=== PATIENT | female | born 1935 | race Caucasian/White ===

== ENCOUNTER → 2016-11-11 08:15 | Outpatient (CLI) | payer MEDICARE, BC ==
[2010-05-01 12:49] VITALS: BMI 28.7
== END | disposition home or self-care (01) ==
LOC: D.NM 08:15
DX: E04.1 Nontoxic single thyroid nodule (principal)

== ENCOUNTER → 2017-04-15 10:03 | Outpatient (CLI) | payer MEDICARE, BC ==
[2010-05-01 12:49] VITALS: BMI 28.7
[2017-04-15 12:43] LABS: BASOPHILS 0.1 % (0-2); EOSINOPHILS 0.4 % (0-7); HEMATOCRIT 26.8 % (36.0-48.0); HEMOGLOBIN 8.1 g/dL (12-16); IMMATURE GRANULOCYTES 0.4 % (0-5); LYMPHOCYTES 3.1 % (15-50); MCH 27.4 pg (26.0-34.0); MCHC 30.2 g/dL (31.0-37.0); MCV 90.5 fL (80.0-100.0); MEAN PLATELET VOLUME 8.6 fL (7.4-10.4); MONOCYTES 4.3 % (2-11); NEUTROPHILS 91.7 % (40-80); PLATELET COUNT 260 10x3/uL (130-400); RBC 2.96 10x6/uL (4.00-5.40); RDW 16.3 % (11.5-14.5); WBC 16.6 10x3/uL (4.8-10.8)
[2017-04-16 07:21] LABS: IMMUNOGLOBULIN E 81 IU/mL (0-100)
== END | disposition home or self-care (01) ==
LOC: D.RT 10:00
PROVIDERS: Internal Medicine Pulmonary Disease
DX: J44.9 Chronic obstructive pulmonary disease, unspecified (principal)

== ENCOUNTER → 2017-10-04 16:18 | Outpatient (CLI) | payer MEDICARE, BC ==
[2010-05-01 12:49] VITALS: BMI 28.7
[2017-10-04 16:53] LABS: BASOPHILS 0.4 % (0-2); EOSINOPHILS 5.1 % (0-7); HEMATOCRIT 23.5 % (36.0-48.0); HEMOGLOBIN 7.2 g/dL (12-16); IMMATURE GRANULOCYTES 0.2 % (0-5); LYMPHOCYTES 13.1 % (15-50); MCHC 30.6 g/dL (31.0-37.0); MCV 94.8 fL (80.0-100.0); MEAN PLATELET VOLUME 9.6 fL (7.4-10.4); MONOCYTES 11.6 % (2-11); NEUTROPHILS 69.6 % (40-80); PLATELET COUNT 287 10x3/uL (130-400); RBC 2.48 10x6/uL (4.00-5.40); RDW 15.5 % (11.5-14.5); WBC 5.3 10x3/uL (4.8-10.8)
[2017-10-04 17:06] LABS: INR 2.22 (0.85-1.17)
[2017-11-07 13:09] VITALS: BMI 25.7
== END | disposition home or self-care (01) ==
LOC: D.LABREF 16:18
PROVIDERS: Obstetrics & Gynecology
DX: D64.9 Anemia, unspecified (principal)

== ENCOUNTER 2017-10-06 11:12 | Outpatient (CLI) | payer MEDICARE, BC ==
[2010-05-01 12:49] VITALS: BMI 28.7
[2017-10-06 12:07] LABS: RBC 2.45 10x6/uL (4.00-5.40); WBC 6.6 10x3/uL (4.8-10.8)
[2017-10-06 12:08] LABS: BASOPHILS 0.3 % (0-2); EOSINOPHILS 3.5 % (0-7); HEMATOCRIT 23.4 % (36.0-48.0); LYMPHOCYTES 7.7 % (15-50); MCH 29.8 pg (26.0-34.0); MCHC 31.2 g/dL (31.0-37.0); MCV 95.5 fL (80.0-100.0); MEAN PLATELET VOLUME 9.2 fL (7.4-10.4); MONOCYTES 6.8 % (2-11); NEUTROPHILS 81.7 % (40-80); PLATELET COUNT 297 10x3/uL (130-400); RDW 15.2 % (11.5-14.5)
[2017-10-06 12:47] LABS: ALBUMIN 3.3 g/dL (3.4-5.0); ANION GAP 8.2 mmol/L (8-16); BILIRUBIN - TOTAL 0.1 mg/dL (0.2-1.3); CALCIUM 9.5 mg/dL (8.5-10.1); CARBON DIOXIDE 33.3 mmol/L (21.0-32.0); CREATININE - SERUM 1.4 mg/dL (0.6-1.3); POTASSIUM - SERUM 4.5 mmol/L (3.5-5.1); PROTEIN - SERUM 6.2 g/dL (6.4-8.2)
[2017-10-06 12:58] LABS: HEMOGLOBIN 7.3 g/dL (12-16)
== END 2017-10-06 19:00 | disposition home or self-care (01) ==
LOC: D.OPS 11:12
PROVIDERS: Family Medicine
DX: D64.9 Anemia, unspecified (principal)

== ENCOUNTER 2017-11-07 10:30 | Outpatient (CLI) | payer MEDICARE, BC ==
[~2017-11-07] VITALS: Ht 160 cm; Wt 65.9 kg
[2017-11-07 13:09] VITALS: BP 123/64; Ht 160 cm; Wt 65.9 kg
== END 2017-11-07 17:56 | disposition home or self-care (01) ==
LOC: D.OPS 10:30
DX: D64.9 Anemia, unspecified (principal); Z01.812 Encounter for preprocedural laboratory examination

== ENCOUNTER → 2018-07-20 14:57 | Outpatient (CLI) | payer MEDICARE, BC ==
[2017-11-07 13:09] VITALS: BMI 25.7
[~2018-07-20 14:57] MED LIST: BAYER CHEWABLE81 MG; BROVANA15 MCG/2 M INH; CALCIUM 600 +1 EAC3; FERROUS SULFAT325 MG PO; METFORMIN HCL500 M1 PO; METOPROLOL TART25 MG; STERAPRED 5MG 125 MG PO; TRAZODONE HCL150 MG PO; ZOCOR20 MG; [UNRECOGNIZED DRUG - OTHER]
== END | disposition home or self-care (01) ==
LOC: D.RT 14:00
PROVIDERS: ATTEND Internal Medicine Pulmonary Disease
DX: J44.9 Chronic obstructive pulmonary disease, unspecified (principal)

== ENCOUNTER 2018-07-27 15:31 | Emergency (ER) | payer MEDICARE ==
[~2018-07-27] VITALS: Ht 160 cm; Wt 62.3 kg
[2018-07-27 15:38] VITALS: BP 107/58; Ht 160 cm; Wt 62.3 kg
[2018-07-27] MEDS ORDERED: BROVANA15 MCG/2 M INH (15:42)
[2018-07-27] MEDS ORDERED: METFORMIN HCL500 M1 PO (15:44)
[2018-07-27] MEDS ORDERED: ZOCOR20 MG (15:44)
[2018-07-27] MEDS ORDERED: FERROUS SULFAT325 MG PO (15:44)
[2018-07-27] MEDS ORDERED: METOPROLOL TART25 MG (15:45)
[2018-07-27] MEDS ORDERED: BAYER CHEWABLE81 MG (15:45)
[2018-07-27] MEDS ORDERED: CALCIUM 600 +1 EAC3 (15:45)
[2018-07-27] MEDS ORDERED: [UNRECOGNIZED DRUG - OTHER] (15:46)
[2018-07-27] MEDS ORDERED: TRAZODONE HCL150 MG PO (15:46)
[2018-07-27] MEDS ORDERED: STERAPRED 5MG 125 MG PO (15:47)
[2018-07-27 16:36] LABS: BASOPHILS 0.3 % (0-2); EOSINOPHILS 4.6 % (0-7); HEMATOCRIT 24.7 % (36.0-48.0); HEMOGLOBIN 7.6 g/dL (12-16); IMMATURE GRANULOCYTES 0.1 % (0-5); LYMPHOCYTES 9.6 % (15-50); MCH 28.3 pg (26.0-34.0); MCHC 30.8 g/dL (31.0-37.0); MCV 91.8 fL (80.0-100.0); MEAN PLATELET VOLUME 8.5 fL (7.4-10.4); MONOCYTES 8.4 % (2-11); PLATELET COUNT 261 10x3/uL (130-400); RBC 2.69 10x6/uL (4.00-5.40); RDW 14.2 % (11.5-14.5); WBC 6.8 10x3/uL (4.8-10.8)
[2018-07-27 16:48] LABS: APTT 32.6 SECONDS (22.8-39.4); INR 1.07 (0.85-1.17); PROTIME 13.4 SECONDS (11.6-15.0)
[2018-07-27 16:59] LABS: ALBUMIN 3.1 g/dL (3.4-5.0); ALKALINE PHOSPHATASE 34 U/L (46-116); ALT (SGPT) 14 U/L (10-68); CALC OSMOLALITY 288 mosm/kg (275-300); CALCIUM 9.9 mg/dL (8.5-10.1); CARBON DIOXIDE 37.4 mmol/L (21.0-32.0); CHLORIDE - SERUM 101 mmol/L (98-107); CREATININE - SERUM 1.1 mg/dL (0.6-1.3); POTASSIUM - SERUM 4.2 mmol/L (3.5-5.1); PROTEIN - SERUM 6.4 g/dL (6.4-8.2); SODIUM 141 mmol/L (136-145); UREA NITROGEN 34 mg/dL (7-18); eGFR NON AFRICAN AMERICAN 50 mL/min (90-120)
[2018-07-27 17:06] LABS: GLUCOSE 96 mg/dL (74-106)
[2018-07-27 17:09] LABS: CKMB 1.3 U/L (0.0-3.6); CREATINE KINASE 57 UL (21-215); PRO BNP 5502 pg/mL (0-450)
[2018-07-27 17:12] LABS: TROPONIN-I < 0.017 ng/mL (0.000-0.060)
== END 2018-07-27 19:30 | disposition left against medical advice (07) ==
LOC: D.ER 15:31
PROVIDERS: Family Medicine
DX: R06.02 Shortness of breath (principal)

== ENCOUNTER 2019-04-27 20:31 | Inpatient (IN) | payer MEDICARE, BC ==
[~2019-04-27] VITALS: Ht 160 cm; Wt 60.5 kg
[2019-04-27] VITALS (9 sets, daily range): BP systolic 115–156; BP diastolic 52–112
[2019-04-27 21:57] LABS: APTT 35.8 SECONDS (22.8-39.4); INR 1.11 (0.85-1.17); PROTIME 14.3 SECONDS (11.6-15.0)
[2019-04-27 21:59] LABS: D-DIMER-QUANTITATIVE 1.82 ug/mLFEU (0.20-0.54)
[2019-04-27 22:02] LABS: CALC OSMOLALITY 310 mosm/kg (275-300); CALCIUM 9.1 mg/dL (8.5-10.1); CARBON DIOXIDE 34.5 mmol/L (21.0-32.0); CHLORIDE - SERUM 105 mmol/L (98-107); CREATININE - SERUM 1.2 mg/dL (0.6-1.3); HEMATOCRIT 30.4 % (36.0-48.0); HEMOGLOBIN 8.8 g/dL (12-16); MCH 26.8 pg (26.0-34.0); MCHC 28.9 g/dL (31.0-37.0); MCV 92.7 fL (80.0-100.0); MEAN PLATELET VOLUME 9.2 fL (7.4-10.4); POTASSIUM - SERUM 4.3 mmol/L (3.5-5.1); RBC 3.28 10x6/uL (4.00-5.40); RDW 14.6 % (11.5-14.5); SODIUM 145 mmol/L (136-145); UREA NITROGEN 54 mg/dL (7-18); WBC 10.8 10x3/uL (4.8-10.8); eGFR NON AFRICAN AMERICAN 45 mL/min (90-120)
[2019-04-27 22:05] LABS: GLUCOSE 217 mg/dL (74-106)
[2019-04-27 22:12] LABS: PLATELET COUNT 420 10x3/uL (130-400)
[2019-04-27 22:27] LABS: ALBUMIN 2.3 g/dL (3.4-5.0); ALKALINE PHOSPHATASE 61 U/L (46-116); ALT (SGPT) 23 U/L (10-68); BILIRUBIN - TOTAL 0.32 mg/dL (0.2-1.3); CKMB 2.6 U/L (0.0-3.6); CREATINE KINASE 54 UL (21-215); PROTEIN - SERUM 6.7 g/dL (6.4-8.2)
[2019-04-27 22:30] LABS: PRO BNP 33713 pg/mL (0-450)
[2019-04-27 22:37] LABS: LYMPHOCYTES 13 % (15-50); NEUTROPHILS 62 % (40-80); PLATELET ESTIMATE NORMAL
[2019-04-28] VITALS (25 sets, daily range): BP systolic 98–139; BP diastolic 46–78; Ht 160 cm; Wt 60.5 kg
--- NOTE | 2019-04-28 | NUR ---
PT ADMITTED TO ICU. PT WAS ON O2 FOR TRANSFER THEN PUT ON BIPAP ONCE IN ICU BED. LEFT AC AND RIGHT AC PATENT. DENIES ANY NEEDS AT THIS TIME
--- NOTE | 2019-04-28 01:00 | NUR ---
REFUSED LOVENOX. STATED THAT SHE HAS NEVER HAD ONE AND SHE NEVER WILL. ATTEMPTED TO EDUCATE PT ON THE IMPORTANCE OF PREVENTING DVT WHILE IN THE HOSPITAL BUT PATIENT STILL REFUSED. ALSO, WHEN TALKING TO PATIENT ABOUT PERSONAL BELONGINGS, PATIENT STATED SHE HAD A WALLET AND MONEY IN A BANK [place]ELOPE THAT SHE DOES WANT LOCKED UP. CALLED ADMISSIONS AND THEY STATED THAT THEY WILL TRY TO COME DOWN TO GET IT.
--- NOTE | 2019-04-28 03:00 | NUR ---
EYES CLOSED, EASILY WAKES. DENIES ANY NEEDS.
[2019-04-28 03:48] LABS: APPEARANCE CLEAR (CLEAR); BILIRUBIN NEGATIVE (NEGATIVE); COLOR YELLOW (YELLOW); GLUCOSE NEGATIVE (NEGATIVE); KETONE NEGATIVE (NEGATIVE); NITRITE NEGATIVE (NEGATIVE); PROTEIN TRACE mg/dL (NEGATIVE); SPECIFIC GRAVITY 1.015 (1.005-1.020); UROBILINOGEN NORMAL (NORMAL)
[2019-04-28 04:32] LABS: BASOPHILS 0.1 % (0-2); EOSINOPHILS 0 % (0-7); HEMATOCRIT 29.1 % (36.0-48.0); HEMOGLOBIN 8.4 g/dL (12-16); IMMATURE GRANULOCYTES 0.4 % (0-5); LYMPHOCYTES 3.6 % (15-50); MCH 26.9 pg (26.0-34.0); MCHC 28.9 g/dL (31.0-37.0); MCV 93.3 fL (80.0-100.0); MEAN PLATELET VOLUME 9.4 fL (7.4-10.4); MONOCYTES 8.7 % (2-11); NEUTROPHILS 87.2 % (40-80); PLATELET COUNT 354 10x3/uL (130-400); RBC 3.12 10x6/uL (4.00-5.40); RDW 14.7 % (11.5-14.5)
--- NOTE | 2019-04-28 05:00 | NUR ---
EASILY WAKES, BIPAP REMAINS ON. DENIES ANY NEEDS
[2019-04-28 05:06] LABS: % SATURATION 6 % (15-55); IRON 11 ug/dl (35-150); TOTAL IRON BIND CAPACITY 161 ug/dl (260-445); UNSAT IRON BIND CAPACITY 150 ug/dl (150-375)
[2019-04-28 05:21] LABS: ALBUMIN 2.2 g/dL (3.4-5.0); ALKALINE PHOSPHATASE 56 U/L (46-116); ALT (SGPT) 21 U/L (10-68); BILIRUBIN - TOTAL 0.27 mg/dL (0.2-1.3); CALC OSMOLALITY 310 mosm/kg (275-300); CALCIUM 8.9 mg/dL (8.5-10.1); CARBON DIOXIDE 32.4 mmol/L (21.0-32.0); CHLORIDE - SERUM 106 mmol/L (98-107); CREATINE KINASE 41 UL (21-215); CREATININE - SERUM 1.3 mg/dL (0.6-1.3); FERRITIN 633 ng/mL (3-244); GLUCOSE 246 mg/dL (74-106); MAGNESIUM - SERUM 2.2 mg/dL (1.8-2.4); PHOSPHOROUS 3.9 mg/dL (2.5-4.9); POTASSIUM - SERUM 4.6 mmol/L (3.5-5.1); PROTEIN - SERUM 6.4 g/dL (6.4-8.2); SODIUM 144 mmol/L (136-145); THYROID STIMULATING HORMONE 0.36 uIU/mL (0.36-3.74); UREA NITROGEN 58 mg/dL (7-18); eGFR NON AFRICAN AMERICAN 41 mL/min (90-120)
[2019-04-28 05:23] LABS: PRO BNP 32279 pg/mL (0-450); TROPONIN-I 0.016 ng/mL (0.000-0.060)
--- NOTE | 2019-04-28 07:09 | NUR ---
patient report recieved. patient lying down. 3.5 l nc. cardizam infusing during this time. see assessment. see adl's. no acute distress. vss. denies pain and needs. side rails x2. bed low and locked. oriented to person place time. will continue to monitor
--- NOTE | 2019-04-28 08:15 | NUR ---
patient gone to CT
--- NOTE | 2019-04-28 08:30 | NUR ---
patient back from CT
--- NOTE | 2019-04-28 08:38 | NUR ---
patient placed on bipap. shortness of breath witnessed.
--- NOTE | 2019-04-28 09:57 | NUR ---
dr pitts at bedside. update given. will continue to monitor
--- NOTE | 2019-04-28 11:30 | NUR ---
SEE REASSESSMENT. NO CHANGES NOTED. PATIENT STILL LABORED BREATHING. BIPAP 60% WITH 100% SPO2. WILL CONTINUE TO MONITOR
--- NOTE | 2019-04-28 13:17 | NUR ---
put patient back on bipap after lunch. tolerated lunch well. became short of breath after lunch was done. spo2 dropped to 83% in the transition to bipap. patient stated "im not going to make it out of this one. im dying" reassured patient we are doing everything we can for her and that by using the bipap itll help her feel better
--- NOTE | 2019-04-28 15:14 | NUR ---
PATIENT RESTING ON BIPAP. NO ACUTE DSITRESS. WILL CONTINUE TO MONITOR. SEE ADL. SEE ASSESSMENT
--- NOTE | 2019-04-28 17:55 | MORECARE ---
CASE MANAGEMENT DISCHARGE SUMMARY PATIENT: VIET ESPINOZA UNIT: [id number] ADM DATE: 04/27/19 AGE: 83 : [birth year] SEX: F ROOM/BED: D.2309 AUTHOR: CORONA COLUNGA PHYSICIAN: REFERRING PHYSICIAN: MATTHEW GREENBERG MD DATE OF SERVICE: 04/28/19 Discharge Plan Patient Name: VIET ESPINOZA [facility] [facility] 1935 Planned Disposition: Anticipated Discharge Date: Discharge Date: Expected LOS: Initial Reviewer: [email or web address] Initial Review Date: 04/28/2019 Generated: 04/28/19 6:54 pm Comments DCP- Discharge Planning Updated by [email or web address]: Divine Cerda on 04/28/19 4:[address] CM attempted to meet with patient today. Patient is on continuous BIPAP. CM will evaluate with discharge needs later. No family available currently. CM will continue to follow and assist as needed with discharge planning / needs Patient Name: VIET ESPINOZA Page [id number] at 1755 All edits/amendments must be made on the electronic document DICTATION DATE: 04/28/191753 PRODUCTION SUPPORT DEVELOPER: NATASHA 04/28/191753 RPT#: [id number] DC DATE: STATUS: ADM IN [facility] [address] [place] [address] END OF REPORT
--- NOTE | 2019-04-28 19:15 | NUR ---
REPORT RECIEVED, SHIFT ASSESSMENT COMPLETE, PT IS ALERT AND ORIENTED, ON 40% BIPAP WITH 99% O2 SAT. ALL PPP, VSS, CALL LIGHT IN REACH
--- NOTE | 2019-04-28 21:10 | NUR ---
NO VISITORS AT THIS TIME, WILL CON'T TO MONITOR
--- NOTE | 2019-04-28 23:11 | NUR ---
REASSESSMENT COMPLETE, NO CHANGES NOTED, PT RESTING AT THIS TIME, VSS, CALL LIGHT IN REACH
[2019-04-29] VITALS (23 sets, daily range): BP systolic 105–150; BP diastolic 41–108
--- NOTE | 2019-04-29 01:20 | NUR ---
RESTING AT THIS TIME, WILL CON'T TO MONITOR
--- NOTE | 2019-04-29 02:30 | NUR ---
PT WANTING BIPAP OFF AT THIS TIME, EXPLAINED RISK OF HAVING MASK OFF, PT STATES " I AM A DNR AND I DONT WANT THE MASK BACK ON"
--- NOTE | 2019-04-29 03:06 | NUR ---
COMPLETE BATH AND LINEN CHANGE, PT TOLERATED WELL,
[2019-04-29 04:43] LABS: ALBUMIN 2.2 g/dL (3.4-5.0); ANION GAP 8.5 mmol/L (8-16); BILIRUBIN - TOTAL 0.18 mg/dL (0.2-1.3); CALCIUM 8.4 mg/dL (8.5-10.1); CARBON DIOXIDE 34.9 mmol/L (21.0-32.0); CREATININE - SERUM 1.6 mg/dL (0.6-1.3); MAGNESIUM - SERUM 2.1 mg/dL (1.8-2.4); POTASSIUM - SERUM 4.4 mmol/L (3.5-5.1); PROTEIN - SERUM 6.4 g/dL (6.4-8.2)
[2019-04-29 04:44] LABS: PHOSPHOROUS 2.5 mg/dL (2.5-4.9)
[2019-04-29 04:45] LABS: BASOPHILS 0.1 % (0-2); EOSINOPHILS 0 % (0-7); HEMATOCRIT 27.7 % (36.0-48.0); HEMOGLOBIN 8.1 g/dL (12-16); IMMATURE GRANULOCYTES 0.5 % (0-5); LYMPHOCYTES 4.5 % (15-50); MCH 26.8 pg (26.0-34.0); MCHC 29.2 g/dL (31.0-37.0); MCV 91.7 fL (80.0-100.0); MEAN PLATELET VOLUME 9.3 fL (7.4-10.4); MONOCYTES 11.3 % (2-11); NEUTROPHILS 83.6 % (40-80); PLATELET COUNT 374 10x3/uL (130-400); RBC 3.02 10x6/uL (4.00-5.40); WBC 7.8 10x3/uL (4.8-10.8)
--- NOTE | 2019-04-29 05:15 | NUR ---
NO NEEDS NOTED AT THIS TIME, WILL CON'T TO MONITOR
--- NOTE | 2019-04-29 08:00 | NUR ---
spoke with brother about prognosis. stated he would rearrage things to come down and see her. told him dr pitts recommended the brother come see his sister due to poor prognosis.
--- NOTE | 2019-04-29 08:58 | NUR ---
[facility] cellphone
--- NOTE | 2019-04-29 09:00 | NUR ---
dr pitts at bedside. update given. new orders on bipap 4hrs bid.
--- NOTE | 2019-04-29 10:27 | NUR ---
dr pitts at bedside. update given.
--- NOTE | 2019-04-29 11:30 | NUR ---
patient on bipap. no complaints during this time. will continue to monitor.
--- NOTE | 2019-04-29 13:00 | NUR ---
patient resting on bipap. short of breath tachypneic. denies pain and needs. informed patient that family will be here tomorrow to see her
--- NOTE | 2019-04-29 13:25 | EC ---
PATIENT:VIET ESPINOZA DATE OF SERVICE: 04/27/19 SEX: F MEDICAL RECORD: [id number] DATE OF : 31 LOCATION:[facility] D230 AGE OF PATIENT: 83 ADMISSION DATE: 04/27/19 REFERRING PHYSICIAN: INTERPRETING PHYSICIAN: HUI BARBOZA MD ECHOCARDIOGRAM REPORT ECHO CHARGES 4 ECHO COMPLETE Date: 04/28/19 CLINICAL DIAGNOSIS: A-FIB H/ CHF/HTN ECHOCARDIOGRAPHIC MEASUREMENTS (adult normal given) AC root (d.<3.7cm) 3.1 cm LV Septum d (<1.2 cm> 1.4 cm Valve Excursion 1.7 cm LV Septum (systole) 2.1 cm Left Atria (s.<4.0cm> 3.5 cm LVPW d(<1.2cm) 1.3 cm RV (d.<2.3cm) 2.0 cm LVPW (sytole) 1.8 cm LV diastole(<5.6CM) 5.3 cm MV E-F(>70mm/sec) cm LV systole 3.1 cm LVOT Diameter 1.6 cm MV exc.(>10mm) cm Est.ejection fraction (50-75%) % DOPPLER: LVIT cm/sec A cm/sec E 159 cm/sec LA cm/sec RVSP 48.1 mmHg LVOT 88.0 cm/sec AOP1/2T m/s Asc. Ao 173 cm/sec RVOT 94.0 cm/sec RA cm/sec PA 130 cm/sec AV Gradient Peak 12.0 mmHg AV Mean 5.9 mmHg AV Area 1.2 cm MV Gradient Peak 12.0 mmHg MV Mean 3.6 mmHg MV Area cm COMMENTS: Radio Sales Account Executive: 1 GRACE CARPIOOE Knitting Teacher: 3 Dr. Lora TAPE# PACS Pericardial Effusion N DATE OF SERVICE: Adequate 2-D echo, color-flow and spectral Doppler, and M-mode. LVH is present. LV internal dimension is normal. Wall motion is normal. EF is greater than or equal to 55%. Aortic valve is sclerosed without evidence of stenosis by Doppler interrogation. Left atrium is normal at 3.5 cm. Mitral valve shows no prolapse. Yocz-rd-pemyukip MR. Right-sided chamber is grossly normal. Moderate TR. ECHOCARDIOGRAM REPORT [id number] VIET ESPINOZA TRANSINT:[id number] Voice Confirmation ID: [id number] DOCUMENT ID: [id number] HUI BARBOZA MD at 1325 CC: [id number] DICTATION DATE: 04/28/191601 BUS STARTER: 04/28/192120 ADM IN [address] [place] [address]
--- NOTE | 2019-04-29 15:20 | NUR ---
patient is still alert and oriented. no acute distress. stated no pain and does not need anyting. provided warm blankets. turned off lights for comfort. will cotninue to monitor
--- NOTE | 2019-04-29 18:57 | MORECARE ---
CASE MANAGEMENT DISCHARGE SUMMARY PATIENT: VIET ESPINOZA UNIT: [id number] ADM DATE: 04/27/19 AGE: 83 : [birth year] SEX: F ROOM/BED: D.2309 AUTHOR: CORONA COLUNGA PHYSICIAN: REFERRING PHYSICIAN: MATTHEW GREENBERG MD DATE OF SERVICE: 04/29/19 Discharge Plan Patient Name: VIET ESPINOZA Facility: [facility]:[place] : 1935 Planned Disposition: Anticipated Discharge Date: Discharge Date: Expected LOS: Initial Reviewer: [email or web address] Initial Review Date: 04/28/2019 Generated: 04/29/19 7:57 pm Comments DCP- Discharge Planning Updated by [email or web address]: Divine Cerda on 04/28/19 4:[address] CM attempted to meet with patient today. Patient is on continuous BIPAP. CM will evaluate with discharge needs later. No family available currently. CM will continue to follow and assist as needed with discharge planning / needs DCPIA - Discharge Planning Initial Assessment Updated by [email or web address]: Divine Cerda on 04/29/19 6:57 pm * Is the patient Alert and Oriented? Yes * PCP JEANNA * [facility] * Preadmission Environment Home Alone * ADLs Independent * Other Equipment O2 @ 3L * List name and contact numbers for known caregivers / representatives who currently or will assist patient after discharge: CYNDI MIRANDA Ligia - [phone] JEAN-CLAUDE PEREZ NASIR - [phone] * Verbal permission to speak to the caregivers and representatives has been obtained from the patient. Yes * Additional services required to return to the preadmission environment? No * Can the patient safely return to the preadmission environment? Yes * Has this patient been hospitalized within the prior 30 days at any hospital? No Last DP export: 04/28/19 4:55 p Patient Name: VIET ESPINOZA Page [phone] at 7827 All edits/amendments must be made on the electronic document DICTATION DATE: 04/29/191856 GAME PRODUCER: NATASHA 04/29/191856 RPT#: [id number] DC DATE: STATUS: ADM IN [facility] [address] [place] [address] END OF REPORT
--- NOTE | 2019-04-29 19:12 | MORECARE ---
CASE MANAGEMENT DISCHARGE SUMMARY PATIENT: VIET ESPINOZA UNIT: [id number] ADM DATE: 04/27/19 AGE: 83 : [birth year] SEX: F ROOM/BED: D.2301 AUTHOR: CORONA COLUNGA PHYSICIAN: REFERRING PHYSICIAN: MATTHEW GREENBERG MD DATE OF SERVICE: 04/29/19 Discharge Plan Patient Name: VIET ESPINOZA Facility: [facility]:[place] : 1935 Planned Disposition: Anticipated Discharge Date: Discharge Date: Expected LOS: Initial Reviewer: [email or web address] Initial Review Date: 04/28/2019 Generated: 04/29/19 8:12 pm Comments DCP- Discharge Planning Updated by [email or web address]: Divine Cerda on 04/29/19 6:[address] Patient Name: VIET ESPINOZA Admission Status: ER Accout number: [id number] Admission Date: 04-27-2019 : 1935 Admission Diagnosis: Attending: MATTHEW GREENBERG Current LOS: 2 Anticipated DC Date: Planned Disposition: Primary Insurance: MEDICARE A & B Discharge Planning Comments: CM met with patient to complete initial dc planning assessment. CM educated patient on the CM role and verbal consent given by patient to complete assessment. Patient lives at home alone where she is independent with her care. Patient states that she doesn't think she will make it back home. Patient is making out her will. Patient brother is flying in. Once family is here they will decide upon Hospice. Patient states she has home [address] Bryan has spoken with patient and agrees that patient has poor prognosis. Patient denied known discharge needs at this time. CM will continue to follow and will assist as needed with dc plans/needs. Auto Winder: Divine Cerda DCP- Discharge Planning Updated by [email or web address]: Divine Cerda on 04/28/19 4:[address] CM attempted to meet with patient today. Patient is on continuous BIPAP. CM will evaluate with discharge needs later. No family available currently. CM will continue to follow and assist as needed with discharge planning / needs DCPIA - Discharge Planning Initial Assessment Updated by [email or web address]: Divine Cerda on 04/29/19 6:57 pm * Is the patient Alert and Oriented? Yes * PCP JEANNA * [facility] * Preadmission Environment Home Alone * ADLs Independent * Other Equipment O2 @ 3L * List name and contact numbers for known caregivers / representatives who currently or will assist patient after discharge: CYNDI NICOLE- [phone] JEAN-CLAUDE BEST - [phone] * Verbal permission to speak to the caregivers and representatives has been obtained from the patient. Yes * Additional services required to return to the preadmission environment? No * Can the patient safely return to the preadmission environment? Yes * Has this patient been hospitalized within the prior 30 days at any hospital? No Last DP export: 04/29/19 5:57 p Patient Name: VIET ESPINOZA Page [phone] at 1912 All edits/amendments must be made on the electronic document DICTATION DATE: 04/29/191911 SECURITY PROFESSIONAL: NATASHA 04/29/191911 RPT#: [id number] DC DATE: STATUS: ADM IN [facility] [address] [place] [address] END OF REPORT
--- NOTE | 2019-04-29 19:42 | NUR ---
PT JUST FINISHED EATING DINNER. SHE DENIES NEEDS AT THIS TIME. VSS. RESPIRATIONS:TACHYPNEIC. PLACED HER BACK ON THE BIPAP. BED IS LOW AND CALL LIGHT WITHIN REACH.
--- NOTE | 2019-04-29 20:45 | NUR ---
CARDIZEM DRIP RUNNING AT 12ML/HR. ORDER SHOWS IT TO INFUSE AT 15ML/HR. CONFIRMED ORDER WITH CHARGE NURSE,PASTOR FERNANDEZ WHO AGREED, ORDER STATES 15ML/HR. CHANGED RATE TO 15ML/HR. HEART RATE 105, RHYTHM IS AFIB. NIGHTTIME MEDS GIVEN. ASSISTED PT TO HER RIGHT SIDE DESIRED. DENIES NEEDS. CALL LIGHT IN REACH.
--- NOTE | 2019-04-29 22:00 | NUR ---
PT RESTING WITH EYES CLOSED. AROUSED WITH VERBAL STIMULI. VSS. SHE IS ON THE BIPAP AT 35%. BED IS LOW, SIDE RAILS UP X 2 AND CALL LIGHT WITHIN REACH.
[2019-04-30] VITALS (22 sets, daily range): BP systolic 111–151; BP diastolic 57–104
--- NOTE | 2019-04-30 00:25 | NUR ---
WENT IN TO COLLECT URINE SPECIMEN FOR UA/CS BUT THE PUREWICK HAD MOVED AND DID NOT CATCH HER URINE. CHANGED PADS ON BED AND REPLACED PUREWICK. WILL MONITOR AND COLLECT SPECIMEN. REPLACED 02 SAT MONITOR DUE TO POOR SIGNAL PER MONITOR READING. HER O2 SAT IS 97% ON 2L NC. ICE CHIPS AND PUDDING GIVEN. TOLERATING WELL. SHE DENIES PAIN OR NEEDS. CALL LIGHT WITHIN REACH.
--- NOTE | 2019-04-30 00:34 | NUR ---
PT RESTING WITH EYES CLOSED. VSS. ON BIPAP 35%. O2 SAT IS 99%. BED IS LOW AND CALL LIGHT IS WITHIN REACH.
--- NOTE | 2019-04-30 03:03 | NUR ---
AFTER PTS PRN BREATHING TREATMENT SHE IS REQUESTING TO BE PLACED ON NASAL CANNULA SO SHE CAN EAT SOME SUGAR FREE JELLO. O2 SAT REMAINED AROUND 97% WHILE ON 7L NASAL CANNULA. PLACED HER BACK ON THE BIPAP WITH THE SAME SETTINGS PRIOR, O2 35%. SHE DENIES PAIN OR NEEDS. BED LOW AND CALL LIGHT WITHIN REACH.
[2019-04-30 04:52] LABS: BASOPHILS 0.3 % (0-2); EOSINOPHILS 0 % (0-7); HEMATOCRIT 28.5 % (36.0-48.0); HEMOGLOBIN 8.3 g/dL (12-16); LYMPHOCYTES 4.2 % (15-50); MCH 26.9 pg (26.0-34.0); MCHC 29.1 g/dL (31.0-37.0); MCV 92.2 fL (80.0-100.0); MEAN PLATELET VOLUME 9.1 fL (7.4-10.4); MONOCYTES 9.5 % (2-11); PLATELET COUNT 358 10x3/uL (130-400); RBC 3.09 10x6/uL (4.00-5.40); RDW 15.1 % (11.5-14.5); WBC 7.9 10x3/uL (4.8-10.8)
[2019-04-30 05:09] LABS: ALBUMIN 2.2 g/dL (3.4-5.0); ANION GAP 8.4 mmol/L (8-16); BILIRUBIN - TOTAL 0.24 mg/dL (0.2-1.3); CALCIUM 8.2 mg/dL (8.5-10.1); CREATININE - SERUM 1.4 mg/dL (0.6-1.3); MAGNESIUM - SERUM 1.7 mg/dL (1.8-2.4); POTASSIUM - SERUM 4.4 mmol/L (3.5-5.1); PROTEIN - SERUM 6.3 g/dL (6.4-8.2)
--- NOTE | 2019-04-30 05:40 | NUR ---
PT RESTING WITH EYES CLOSED. NO DISTRESS NOTED. VSS STABLE. BED LOW AND CALL LIGHT WITHIN REACH.
--- NOTE | 2019-04-30 09:45 | NUR ---
Nutrition follow-up: Pt ate 100% of breakfast; states she loves the eggs. Helped fill out todays menu Food preferences honored labs reviewed WT: 133# RDN following.
--- NOTE | 2019-04-30 10:44 | NUR ---
NEIGHBOR NILDA CALLED TO CHECK ON PATIENT. PATIENT GRANTED PERMISSION TO SPEAK WITH HER SINCE NO PASSWORD HAS BEEN ESTABLISHED. ASKED ABOUT GETTING WILL NOTARIZED. TOLD HER THAT IT HAS BEEN PASSED ALONG THAT THERE IS NEED FOR NOTARY, BUT HAVE BEEN UNABLE TO FIND THE PAPERWORK FOR A LIVING WILL. IT WAS THEN DETERMINED THAT IT WASN'T A LIVING WILL THAT WAS NEEDED, IT WAS A DISTRIBUTION OF ASSETS. LET HER KNOW THAT WE CAN DO A LIVING WILL WHICH ASSIGNS A PERSON TO MAKE MEDICAL DECISIONS, NOT TAKING CARE OF PERSONAL PROPERTY.
--- NOTE | 2019-04-30 18:30 | NUR ---
BIPAP APPLIED AMADEO APPLICATION WELL
--- NOTE | 2019-04-30 19:32 | NUR ---
TOOK PT OFF BIPAP AND PLACED ON 7L NC SO SHE COULD EAT DINNER. 02 SAT 95%, HEART RATE 85, OTHER VSS STABLE. SHE DENIES PAIN OR NEEDS AT THIS TIME. BED LOW AND CALL LIGHT WITHIN REACH.
--- NOTE | 2019-04-30 22:00 | NUR ---
PT SITTING UP IN BED. JUST FINISHED VISITING WITH FAMILY MEMBERS. OFFERED TO PUT THE BIPAP ON HER AND SHE WANTS TO FINISH EATING HER PUDDING THEN GO TO BED AND PUT THE BIPAP ON. 02 SAT IS 97% ON 7L NC AT THIS TIME. SHE DENIES PAIN OR NEEDS. BED IS LOW AND CALL LIGHT WITHIN REACH. VSS.
[2019-05-01] VITALS (16 sets, daily range): BP systolic 64–141; BP diastolic 26–74
--- NOTE | 2019-05-01 00:53 | NUR ---
RT ADMINISTERING PRN BREATHING TREATMENT THROUGH BIPAP. BIPAP O2 AT 35%. PTS O2 SAT IS 97%.
--- NOTE | 2019-05-01 01:30 | NUR ---
PTS HEART RATE IS 60. SPOKE WITH CHARGE NURSE, PASTOR LINARES WHO ADVISED TO TURN CARDIZEM DRIP DOWN TO 10ML/HR. CHANGED THE INFUSION RATE FROM 15ML/HR TO 10ML/HR. WILL CONTINUE TO MONITOR.
--- NOTE | 2019-05-01 02:54 | NUR ---
PT CONTINUES TO TAKE OFF BIPAP MASK EXPLAINED IMPORTANCE OF LEAVING ON
[2019-05-01 04:53] LABS: BASOPHILS 0.5 % (0-2); EOSINOPHILS 0 % (0-7); HEMATOCRIT 29.4 % (36.0-48.0); HEMOGLOBIN 8.5 g/dL (12-16); IMMATURE GRANULOCYTES 7.4 % (0-5); LYMPHOCYTES 1.9 % (15-50); MCHC 28.9 g/dL (31.0-37.0); MCV 93.3 fL (80.0-100.0); MEAN PLATELET VOLUME 9.3 fL (7.4-10.4); MONOCYTES 4.8 % (2-11); NEUTROPHILS 85.4 % (40-80); PLATELET COUNT 380 10x3/uL (130-400); RBC 3.15 10x6/uL (4.00-5.40); RDW 15.4 % (11.5-14.5)
[2019-05-01 04:54] LABS: WBC 18.2 10x3/uL (4.8-10.8)
--- NOTE | 2019-05-01 06:12 | NUR ---
PT HAD A LARGE BOWEL MOVEMENT. HER STOOL WAS BLACK AND FORMED. COMPLETED GALAVIZ CARE. SHE HAD A PARTIAL CHG BATH. DURING WHICH SHE BECAME SHORT OF BREATH FROM TURNING AND ASKED ME TO STOP. SHE THEN NEEDED TO GET BACK ON THE BED POMPA AND HAD A LARGE BLACK FORMED BOWEL MOVEMENT. CLEANED HER UP. HER BUTTOCKS IS RED. APPLIED BARRIER CREAM AND PLACED A PILLOW UNDER HER RIGHT HIP TO TAKE SOME OF THE PRESSURE OFF HER BOTTOM. CALL LIGHT WITHIN REACH.
[2019-05-01 07:10] LABS: ALBUMIN 2.1 g/dL (3.4-5.0); ANION GAP 13.2 mmol/L (8-16); BILIRUBIN - TOTAL 0.78 mg/dL (0.2-1.3); CALCIUM 7.8 mg/dL (8.5-10.1); CARBON DIOXIDE 32.8 mmol/L (21.0-32.0); MAGNESIUM - SERUM 2.1 mg/dL (1.8-2.4); PROTEIN - SERUM 5.9 g/dL (6.4-8.2)
[2019-05-01 07:13] LABS: CREATININE - SERUM 1.8 mg/dL (0.6-1.3); PHOSPHOROUS 4.5 mg/dL (2.5-4.9)
--- NOTE | 2019-05-01 14:14 | NUR ---
0800 REPORT RECIEVED AND CARE ASSUMED OF PATIENT.. PT IS ON BIPAP O2 .. SHE IS AWAKE AND APPROPRIATE IN HER RESPONSES.. 0900 DR JONES IN UNIT AND SEEING PATIENT.. UPDATE IS GIVEN,, 1000 PT REQUEST TO BE TAKEN OFF OF BIPAP FOR A LITTLE WHILE AT THIS TIME.. 1015 BIPAP O2 REMOVED AND BREAKFAST ISSERVED.. BATH GIVEN , SMALL SMEAR OF STOOL .. REPOSITIONED AND PT IS FEEDING SELF DIET.. 1130 ONLY SMAll AMOUNT BREAKFAST CONSUMED.. 1220 HEART RATE HAS DROPPED TO 55 SUSTAINED AND SAWTOOTH AFIB CARDIZEM DRIP RATE DECREASED TO 5CC.. PT IS SOB AND REQUEST BIPAP O2... BIPAP ON AT PREVIOUS RATE AND SAT NOW 95% PT REFUSUES LUNCH TRAY 1330 HEART RATE CONTINUES TO DROP .. NOW 46 CARDIZEM DRIP OFF 1400 HEART RATE MORE STABLE AT 62 CONTINUES A FIB ON BIPAP..
--- NOTE | 2019-05-01 16:28 | NUR ---
1600 INCONTINENT OF STOOL PT CLEANED BP 71/[address] GREENBERG CALLED 1620 500CC NS BOLUS ORDERED BY
--- NOTE | 2019-05-01 16:39 | NUR ---
1635 NS BOLUS STARTED AT THIS TIME
--- NOTE | 2019-05-01 17:03 | NUR ---
1700 HR 46 BP REMAINS 50-60 SYS FLUID BOLUS INFUSING.. BIPAP ON...ATTEMPT TO CALL FAMILY TO INFORM THEM... MESSAGES LEFT
--- NOTE | 2019-05-01 17:29 | NUR ---
1710 SUDDENLY PT HR IS ASSYSTOLE.. ATTEMPTS X [address] FAMILY.. DR GREENBERG NOTIFIED.. 1720 DR MACK HERE TO PRONOUNCE PT CONTINUE UNABLE TO REACH FAMILY...
--- NOTE | 2019-05-01 19:00 | NUR ---
HOME HERE FOR PT
--- NOTE | 2019-05-02 19:19 | MORECARE ---
CASE MANAGEMENT DISCHARGE SUMMARY PATIENT: VIET ESPINOZA UNIT: [id number] ADM DATE: 04/27/19 AGE: 83 : [birth year] SEX: F ROOM/BED: D.2306 AUTHOR: KEANUDOC PHYSICIAN: REFERRING PHYSICIAN: MATTHEW GREENBERG MD DATE OF SERVICE: 05/02/19 Discharge Plan Patient Name: VIET ESPINOZA Facility: [facility]:[place] : 1935 Planned Disposition: Anticipated Discharge Date: Discharge Date: 05/01/2019 Expected LOS: Initial Reviewer: [email or web address] Initial Review Date: 04/28/2019 Generated: 05/02/19 8:19 pm DCP- Discharge Planning Updated by [email or web address]: Divine Cerda on 04/29/19 6:[address] Patient Name: VIET ESPINOZA Admission Status: ER Accout number: [id number] Admission Date: 04-27-2019 : 1935 Admission Diagnosis: Attending: MATTHEW GREENBERG Current LOS: 2 Anticipated DC Date: Planned Disposition: Primary Insurance: MEDICARE A & B Discharge Planning Comments: CM met with patient to complete initial dc planning assessment. CM educated patient on the CM role and verbal consent given by patient to complete assessment. Patient lives at home alone where she is independent with her care. Patient states that she doesn't think she will make it back home. Patient is making out her will. Patient brother is flying in. Once family is here they will decide upon Hospice. Patient states she has home [address] Bryan has spoken with patient and agrees that patient has poor prognosis. Patient denied known discharge needs at this time. CM will continue to follow and will assist as needed with dc plans/needs. [employer]oples[employer] Crm Developer: Divine Cerda DCP- Discharge Planning Updated by [email or web address]: Divine Cerda on 04/28/19 4:[address] CM attempted to meet with patient today. Patient is on continuous BIPAP. CM will evaluate with discharge needs later. No family available currently. CM will continue to follow and assist as needed with discharge planning / needs DCPIA - Discharge Planning Initial Assessment Updated by [email or web address]: Divine Cerda on 04/29/19 6:57 pm * Is the patient Alert and Oriented? Yes * PCP JEANNA * [facility] * Preadmission Environment Home Alone * ADLs Independent * Other Equipment O2 @ 3L * List name and contact numbers for known caregivers / representatives who currently or will assist patient after discharge: CYNDI NICOLE- [phone] JEAN-CLAUDE BEST - [phone] * Verbal permission to speak to the caregivers and representatives has been obtained from the patient. Yes * Additional services required to return to the preadmission environment? No * Can the patient safely return to the preadmission environment? Yes * Has this patient been hospitalized within the prior 30 days at any hospital? No Last DP export: 04/29/19 6:12 p Patient Name: VIET ESPINOAZ Page 12458 at 191 All edits/amendments must be made on the electronic document DICTATION DATE: 05/02/191918 GAS LINE INSTALLER SUPERVISOR: NATASHA 05/02/191918 RPT#: [id number] DC DATE:05/01/19 STATUS: DIS IN [facility] [address] [place] [address] END OF REPORT
== END 2019-05-01 17:07 | DRG 291 ==
LOC: D.ER 20:31 → D.ICU 22:51
PROVIDERS: Family Medicine; ADMIT Internal Medicine Nephrology; ATTEND Internal Medicine Nephrology
PROC: 5A09457 Assistance with Respiratory Ventilation, 24-96 Consecutive Hours, Continuous Positive Airway Pressure (ICD-10-PCS; principal; 2019-04-28)
DX: I13.0 Hypertensive heart and chronic kidney disease with heart failure and stage 1 through stage 4 chronic kidney disease, or unspecified chronic kidney disease (principal); J96.22 Acute and chronic respiratory failure with hypercapnia; I50.23 Acute on chronic systolic (congestive) heart failure; R40.2114 Coma scale, eyes open, never, 24 hours or more after hospital admission; R40.2214 Coma scale, best verbal response, none, 24 hours or more after hospital admission; J96.21 Acute and chronic respiratory failure with hypoxia; N18.9 Chronic kidney disease, unspecified; E11.22 Type 2 diabetes mellitus with diabetic chronic kidney disease; D64.9 Anemia, unspecified; E78.5 Hyperlipidemia, unspecified; F41.8 Other specified anxiety disorders; M81.0 Age-related osteoporosis without current pathological fracture; E05.90 Thyrotoxicosis, unspecified without thyrotoxic crisis or storm; I48.91 Unspecified atrial fibrillation; J43.9 Emphysema, unspecified; Z66 Do not resuscitate; R40.2354 Coma scale, best motor response, localizes pain, 24 hours or more after hospital admission